=== PATIENT | male | born 1965 | race Hispanic/Latino ===

== ENCOUNTER 2020-04-13 01:09 | Emergency (ER) | payer OTHER ==
[~2020-04-13] VITALS: Ht 170.2 cm; Wt 81.8 kg
[2020-04-13] MEDS ORDERED: LISI-542 PO (01:23)
[2020-04-13] MEDS ORDERED: ATOR40TA75 PO (01:23)
[2020-04-13] MEDS ORDERED: BASA100I SC (01:23)
[2020-04-13] MEDS ORDERED: MPAP (01:23)
[2020-04-13] MEDS ORDERED: METF10004 PO (01:23)
--- NOTE | 2020-04-13 03:23 | REPVR ---
PROCEDURE INFORMATION: Exam: XR Right Hip with Pelvis when Performed Exam date and time: 04/13/2020 2:10 AM Age: 54 years old Clinical indication: Hip pain and pelvic pain; Right hip TECHNIQUE: Imaging protocol: XR Right hip with pelvis when performed. Views: 2 or 3 views. COMPARISON: No relevant prior studies available. FINDINGS: Bones/joints: Small superolateral right acetabular chip fracture. Mild degenerative joint disease. Rounding of the femoral head neck junctions. Soft tissues: Unremarkable. IMPRESSION: Small superolateral right acetabular chip fracture. Electronically signed by: Juan Jose Taylor On 04/13/2020 03:23:18 AM
[2020-04-13] MEDS ORDERED: METAL LOCK LOOP XX ONE (03:31)
[2020-04-13] MEDS ORDERED: NAPR-837 PO (03:51)
[2020-04-13] MEDS ORDERED: OXYCODONE/APAP 5MG/325MG(BULK FOR ED) 1 TABLET PO ONE (04:00)
[2020-04-13] MEDS ORDERED: KETOROLAC 60MG 2ML VIAL IM ONE (04:00)
[2020-04-13 04:38] VITALS: BP 116/57
== END 2020-04-13 04:41 | disposition home or self-care (01) ==
LOC: M ED 01:09
DX: S32.491A Other specified fracture of right acetabulum, initial encounter for closed fracture (principal); X58.XXXA Exposure to other specified factors, initial encounter; Y92.89 Other specified places as the place of occurrence of the external cause; Y93.89 Activity, other specified; Y99.8 Other external cause status; E11.9 Type 2 diabetes mellitus without complications; F17.210 Nicotine dependence, cigarettes, uncomplicated; Z79.899 Other long term (current) drug therapy; Z79.4 Long term (current) use of insulin
CPT/HCPCS: 73502; 96372; 99283; J1885

== ENCOUNTER 2020-04-15 16:04 | Emergency (ER) | payer OTHER ==
[~2020-04-15] VITALS: Ht 170.2 cm; Wt 81.8 kg
[~2020-04-15 16:04] MED LIST: ATOR40TA75 PO; BASA100I SC; LISI-542 PO; METF10004 PO; MPAP; NAPR-837 PO
[2020-04-15 16:05] VITALS: BP 106/62
--- NOTE | 2020-04-15 16:47 | REP ---
INDICATION: trauma. COMPARISON: None. TECHNIQUE: Axial noncontrast images through the right hip with coronal and sagittal reformations. FINDINGS: Degenerative changes include increased sclerosis to the acetabular roof with marginal spurring. Small fractured osteophyte along the superior rim of the acetabulum is appreciated and acute versus chronic process cannot be differentiated. Remainder of the osseous structures through the visualized right hemipelvis and proximal femur are intact and without further acute fracture or dislocation. Surrounding musculature and subcutaneous tissues appear relatively normal. No significant joint effusion or hematoma. No obvious muscular injury. IMPRESSION: 1. Small acute versus chronic fractured osteophyte along the superior rim of the acetabulum. 2. Mild/early moderate underlying degenerative changes. 3. No further acute fracture or dislocation. <Electronically signed by Golden Freeman > 04/15/20 [id number]
== END 2020-04-15 17:25 | disposition home or self-care (01) ==
LOC: M ED 16:04
DX: S32.491A Other specified fracture of right acetabulum, initial encounter for closed fracture (principal); X58.XXXA Exposure to other specified factors, initial encounter; Y92.89 Other specified places as the place of occurrence of the external cause; I10 Essential (primary) hypertension; E11.9 Type 2 diabetes mellitus without complications; E78.5 Hyperlipidemia, unspecified; F17.210 Nicotine dependence, cigarettes, uncomplicated; Z79.899 Other long term (current) drug therapy; Z79.4 Long term (current) use of insulin; Z79.1 Long term (current) use of non-steroidal anti-inflammatories (NSAID)

== ENCOUNTER 2021-01-17 22:34 | Emergency (ER) | payer OTHER ==
[~2021-01-17] VITALS: Ht 170.2 cm; Wt 84.5 kg
[2021-01-17 22:34] VITALS: BP 174/85
[~2021-01-17 22:34] MED LIST changes: -LISI-542 PO; +LISI-898 PO
== END 2021-01-17 22:45 | disposition left against medical advice (07) ==
LOC: M ED 22:34
DX: Z53.21 Procedure and treatment not carried out due to patient leaving prior to being seen by health care provider (principal)